=== PATIENT | male | born 1940 | race Caucasian/White ===

== ENCOUNTER → 2020-10-19 | Outpatient (CLI) | payer MEDICARE, OTHER ==
[~2020-10-19] MED LIST: ACCUPRIL10 MG PO; APRISO0.375 GM PO; ASPIRIN CHEWABL81 MG PO; HYDROCHLOROTHIA25 MG PO; K-DUR TAB 20 M20 MEQ PO; LIPITOR TAB 1010 MG PO; LOPRESSOR 25 MG25 MG PO; OMNICEF 300 MG300 MG PO; SYNTHROID 50 M50 MCG PO; ZYLOPRIM 300 M300 MG PO
== END ==
LOC: KOH-I 13:27
DX: Z87.891 Personal history of nicotine dependence (principal)
CPT/HCPCS: 71271

== ENCOUNTER → 2021-11-18 | Outpatient (CLI) | payer MEDICARE, OTHER | LOC: KOH-I 13:44 | DX: Z87.891 Personal history of nicotine dependence (principal); R91.8 Other nonspecific abnormal finding of lung field | CPT/HCPCS: 71271 ==